=== PATIENT | male | born 1985 | race Caucasian/White ===

== ENCOUNTER 2016-10-26 18:05 | Emergency (ER) | payer SELFPAY ==
[~2016-10-26] VITALS: Ht 175.3 cm; Wt 68.0 kg
[~2016-10-26 18:05] MED LIST: DICL50TA3 PO; ROBA750T PO
[2016-10-26 18:07] VITALS: BP 127/66; PULSE 108; RESP 17; TEMP 98.2; O2SAT 98
--- NOTE | 2016-10-26 18:41 | PD ---
HPI Chief Complaint: Skin Problem Time Seen by Provider: 18:39 Travel History International Travel<30 days: No Contact w/Intl Traveler<30days: No Traveled to known affect area: No History of Present Illness HPI 31-year-old male presents to the emergency department for evaluation of abscess to his right upper arm. He states that approximately 4-5 days ago, he scratched his right upper arm against a chi nail in the infection started after. The patient does have history of IVDU. He states the last time he used was 6 months ago and adamantly denies currently using IV drugs. Patient denies any fevers or chills. He states he tried to pop it himself without success. Patient reports no chronic medical problems and taking no prescribed medications. Denies any chest injuries breath. No abdominal pain. No nausea, vomiting, diarrhea. He denies any allergies to medications. PFSH Past Medical History Medical History: Denies Significant Hx Diminished Hearing: No Tetanus Vaccination: Unknown Past Surgical History Surgical History: No Previous Surgery Social History Alcohol Use: No Tobacco Use: Yes Substance Use: No Allergies-Medications (Allergen,Severity, Reaction): Coded Allergies: No Known Allergies (Unverified , 10/26/16) Reported Meds & Prescriptions Reported Meds & Active Scripts Active Review of Systems Except as stated in HPI: all other systems reviewed are Neg Physical Exam Narrative GENERAL: Well-nourished, well-developed male patient, ambulatory. Afebrile SKIN: Focused skin assessment warm/dry. Patient has 10 cm x 10 cm fluctuant abscess with mild erythema to the right upper arm. HEAD: Normocephalic. Atraumatic. EYES: No scleral icterus. No injection or drainage. NECK: Supple, trachea midline. No JVD or lymphadenopathy. CARDIOVASCULAR: Regular rate and rhythm without murmurs, gallops, or rubs. Right radial pulse is 2+. RESPIRATORY: Breath sounds equal bilaterally. No accessory muscle use. Lungs sounds are clear to auscultation. GASTROINTESTINAL: Abdomen soft, non-tender, nondistended. MUSCULOSKELETAL: No cyanosis, or edema. Patient has full flexion of the right elbow, but limited extension due to pain. BACK: Nontender without obvious deformity. No CVA tenderness. Data Data Last Documented VS Vital Signs Date Time Temp Pulse Resp B/P Pulse Ox O2 Delivery O2 Flow Rate FiO2 10/26/16 19:19 98.2 83 19 111/61 100 Orders Complete Blood Count With Diff (10/26/16 18:37) Basic Metabolic Panel (Bmp) (10/26/16 18:37) Iv Access Insert/Monitor (10/26/16 18:37) Wound Culture And Gram Stain (10/26/16 18:37) Tetanus/Diphtheria Tox Adult (Tetanus/Di (10/26/16 18:45) Lidocai-Epi 1%-1:100,000 Inj (Xylocaine- (10/26/16 18:45) Clindamycin (Cleocin) (10/26/16 20:00) Labs Laboratory Tests Test 10/26/16 18:40 White Blood Count 15.7 TH/MM3 Red Blood Count 3.95 MIL/MM3 Hemoglobin 11.8 GM/DL Hematocrit 35.1 % Mean Corpuscular Volume 88.9 FL Mean Corpuscular Hemoglobin 29.9 PG Mean Corpuscular Hemoglobin 33.6 % Concent Red Cell Distribution Width 12.7 % Platelet Count 380 TH/MM3 Mean Platelet Volume 8.2 FL Neutrophils (%) (Auto) 74.8 % Lymphocytes (%) (Auto) 14.8 % Monocytes (%) (Auto) 9.0 % Eosinophils (%) (Auto) 0.9 % Basophils (%) (Auto) 0.5 % Neutrophils # (Auto) 11.7 TH/MM3 Lymphocytes # (Auto) 2.3 TH/MM3 Monocytes # (Auto) 1.4 TH/MM3 Eosinophils # (Auto) 0.1 TH/MM3 Basophils # (Auto) 0.1 TH/MM3 CBC Comment DIFF FINAL Differential Comment Sodium Level 135 MEQ/L Potassium Level 5.2 MEQ/L Chloride Level 104 MEQ/L Carbon Dioxide Level 22.8 MEQ/L Anion Gap 8 MEQ/L Blood Urea Nitrogen 12 MG/DL Creatinine 0.81 MG/DL Estimat Glomerular Filtration 111 ML/MIN Rate Random Glucose 83 MG/DL Calcium Level 8.4 MG/DL [facility] Medical Decision Making Medical Screen Exam Complete: Yes Emergency Medical Condition: Yes Medical Record Reviewed: Yes Differential Diagnosis Abscess versus cellulitis versus sepsis Narrative Course 31-year-old male presents to the emergency department for evaluation of abscess to his right arm that he has had for approximately 4-5 days. Patient adamantly denies IVDU. CBC, BMP are ordered and pending. CBC shows WBC of 15.7. BMP shows potassium of 5.2, however moderate hemolysis was noted. Patient is given clindamycin 300 mg by mouth in the emergency department. Tetanus immunization is updated. Patient will be discharged with a prescription for Bactrim and Keflex. He is instructed to return in 2 days for packing removal and recheck. He is return sooner for any acute worsening of symptoms. He verbalizes agreement and understanding. Procedures Procedure Narrative INCISION AND DRAINAGE OF ABSCESS: The area was prepped and was sterilely draped. A subcutaneous wheal of 1% Xylocaine with epinephrine with a total number 5 mL was used to anesthetize the area. The area was properly anesthetized. A number 11 scalpel was used to make a 1 -cm incision across the area of the abscess. Cultures were obtained. The abscess was drained an irrigated with normal saline. Quarter inch iodoform packing was placed in the wound. Sterile dressing applied. Patient advised to have packing removed in two days. Diagnosis Primary Impression: Abscess of arm, right Referrals: Primary Care Physician call for appointment Patient Instructions: Abscess (ED), Abscess Incision and Drainage (ED), General Instructions Departure Forms: Tests/Procedures, Work Release Enter return to work date: Oct 28, 2016 Additional Instructions: Take antibiotics as directed until gone. Bactrim is free at [facility]. Keflex is $4 at [facility]. Clean twice daily with soap and water and apply over the counter antibiotic ointment. Packing is to be removed in 2 days. Please return to the emergency department for packing removal and recheck of abscess in 2 days. Follow up with a primary care physician. Return sooner for any acute, worsening of symptoms. Med/Other Pt SpecificInfo: Prescription(s) given Scripts Ibuprofen 800 Mg [id number] Mg PO TID PRN (PAIN SCALE 1 TO 10) #21 TAB Ref 0 Prov:Anny Guy 10/26/16 Cephalexin (Keflex)500 Mg [id number] Mg PO Q6H 10 Days Ref 0 Prov:Anny Guy 10/26/16 Sulfamethoxazole-Trimethoprim (Bactrim DS)800-160 Mg Tab1 Tab PO BID #20 TAB Ref 0 Prov:Anny Guy 10/26/16 Disposition: 01 DISCHARGE HOME Condition: Stable Anny Guy Oct 26, 2016 18:41
[2016-10-26] MEDS ORDERED: TETANUS/DIPHTHERIA TOXOID ADULT 0.5 ML VIAL IM ONE (18:45)
[2016-10-26] MEDS ORDERED: LIDOCAINE 1%/EPINEPHrine 1:100,000 SOLN 20 ML VIAL INFIL ONE (18:45)
[2016-10-26 19:19] VITALS: BP 111/61; PULSE 83; RESP 19; TEMP 98.2; O2SAT 100
[2016-10-26 19:19] LABS: AUTOMATED NEUTROPHIL # 11.7 TH/MM3 (1.8-7.7); BASOPHIL # 0.1 TH/MM3 (0-0.2); BASOPHIL % 0.5 % (0.0-2.0); EOSINOPHIL # 0.1 TH/MM3 (0-0.4); EOSINOPHIL % 0.9 % (0.0-4.0); HEMATOCRIT 35.1 % (39.0-51.0); HEMO FLAGS DIFF FINAL; LYMPH % 14.8 % (9.0-44.0); LYMPHOCYTE # 2.3 TH/MM3 (1.0-4.8); MEAN CELL VOLUME 88.9 FL (80.0-100.0); MEAN CORPUSCULAR HEMOGLOBIN 29.9 PG (27.0-34.0); MEAN CORPUSCULAR HGB CONC 33.6 % (32.0-36.0); NEUT % 74.8 % (16.0-70.0); PLATELET COUNT 380 TH/MM3 (150-450); RED BLOOD COUNT 3.95 MIL/MM3 (4.50-5.90); RED CELL DISTRIBUTION WIDTH 12.7 % (11.6-17.2); WHITE BLOOD COUNT 15.7 TH/MM3 (4.0-11.0)
[2016-10-26 19:44] LABS: BICARBONATE 22.8 MEQ/L (21.0-32.0); POTASSIUM 5.2 MEQ/L (3.5-5.1)
[2016-10-26] MEDS ORDERED: BACT800T5 PO (19:58)
[2016-10-26] MEDS ORDERED: CEPH-460 PO (19:58)
[2016-10-26] MEDS ORDERED: IBUP800T23 PO (19:58)
[2016-10-26] MEDS ORDERED: CLINDAMYCIN 150 MG CAP PO ONE (20:00)
[2016-10-26 20:09] VITALS: BP 115/64; TEMP 98.2
== END 2016-10-26 20:11 | disposition home or self-care (01) ==
LOC: NEPE 18:05
DX: L02.413 Cutaneous abscess of right upper limb (principal); B95.61 Methicillin susceptible Staphylococcus aureus infection as the cause of diseases classified elsewhere; B96.3 Hemophilus influenzae [H. influenzae] as the cause of diseases classified elsewhere; Z23 Encounter for immunization
CPT/HCPCS: 10061; 80048; 85025; 86403; 87070; 87077; 87185; 87186; 87205; 90471; 90714

== ENCOUNTER 2017-06-09 19:55 | Emergency (ER) | payer MEDICAID ==
[~2017-06-09 19:55] MED LIST changes: +BACT800T5 PO; +CEPH-460 PO; -DICL50TA3 PO; +IBUP1TAB7 PO; -ROBA750T PO
[2017-06-09 19:58] VITALS: BP 178/101; PULSE 92; RESP 16; TEMP 97.8; O2SAT 99
--- NOTE | 2017-06-09 21:55 | RADRPT ---
EXAM DATE/TIME: 06/09/2017 20:39 [facility] COMPARISON: No previous studies available for comparison. INDICATIONS : Trauma, fell off roof. RADIATION DOSE: 32.93 CTDIvol (mGy) MEDICAL HISTORY : None SURGICAL HISTORY : None. ENCOUNTER: Initial ACUITY: 1 day PAIN SCALE: 8/10 LOCATION: cranial TECHNIQUE: Multiple contiguous axial images were obtained of the head. Using automated exposure control and adj ustment of the mA and/or kV according to patient size, radiation dose was kept as low as reasonably a chievable to obtain optimal diagnostic quality images. DICOM format image data is available electro nically for review and comparison. FINDINGS: CEREBRUM: The ventricles are normal for age. No evidence of midline shift, mass lesion, hemorrhage or acute in farction. No extra-axial fluid collections are seen. POSTERIOR FOSSA: The cerebellum and brainstem are intact. The 4th ventricle is midline. The cerebellopontine angle i s unremarkable. EXTRACRANIAL: The visualized portion of the orbits is intact. SKULL: The calvaria is intact. No evidence of skull fracture. CONCLUSION: Normal examination. Manny Roth MD on June 09, 2017 at 21:53 Board Certified Radiologist. This report was verified electronically.
--- NOTE | 2017-06-09 21:57 | RADRPT ---
EXAM DATE/TIME: 06/09/2017 20:39 [facility] COMPARISON: No previous studies available for comparison. INDICATIONS : Trauma, fell off roof. RADIATION DOSE: 19.24 CTDIvol (mGy) MEDICAL HISTORY : None SURGICAL HISTORY : None. ENCOUNTER: Initial ACUITY: 1 day PAIN SCALE: 0/10 LOCATION: neck TECHNIQUE: Volumetric scanning of the cervical spine was performed. Multiplanar reconstructions in the sagittal, coronal and oblique axial planes were performed. Using automated exposure control and adjustment o f the mA and/or kV according to patient size, radiation dose was kept as low as reasonably achievable to obtain optimal diagnostic quality images. DICOM format image data is available electronically f or review and comparison. FINDINGS: VERTEBRAE: Normal vertebral body height. ALIGNMENT: No evidence of subluxation. C2-C3: The bony spinal canal is normal in size. No evidence of disc bulge or herniation. The neural forami na are bilaterally patent. C3-C4: The bony spinal canal is normal in size. No evidence of disc bulge or herniation. The neural forami na are bilaterally patent. C4-C5: The bony spinal canal is normal in size. No evidence of disc bulge or herniation. The neural forami na are bilaterally patent. C5-C6: The bony spinal canal is normal in size. No evidence of disc bulge or herniation. The neural forami na are bilaterally patent. C6-C7: The bony spinal canal is normal in size. No evidence of disc bulge or herniation. The neural forami na are bilaterally patent. C7-T1: The bony spinal canal is normal in size. No evidence of disc bulge or herniation. The neural forami na are bilaterally patent. CONCLUSION: No acute bony abnormality is seen. Manny Roth MD on June 09, 2017 at 21:54 Board Certified Radiologist. This report was verified electronically.
[2017-06-09] MEDS ORDERED: NAPR500 PO (22:04)
[2017-06-09] MEDS ORDERED: CYCL10TA PO (22:04)
--- NOTE | 2017-06-09 22:11 | PD ---
HPI Chief Complaint: Fall Time Seen by Provider: 21:50 Travel History International Travel<30 days: No Contact w/Intl Traveler<30days: No Traveled to known affect area: No History of Present Illness HPI Patient comes in for evaluation of a headache status post fall that occurred around 3 PM today. Patient states he accidentally stepped off a roof and after landing he fell forward hitting his head and now having intermittent headaches on the top of his head where he hit. Patient denies any loss of consciousness, chest pain, shortness of breath, abdominal pain, fevers, nausea, vomiting, back pain, leg pain, ankle pain, foot pain, calcaneus pain, loss or change in bowel or bladder, numbness or tingling anywhere, being on any blood thinners, radiation of pain, or pain anywhere else. Patient states initially he drove home was not going to be checked out and took some ibuprofen. Patient was encouraged by his mother to come in for evaluation. Patient also complaining of neck stiffness. Denies anything making this better. Has got slightly worse since having c-collar in place. Denies any radiation of the pain. PFSH Past Medical History Medical History: Denies Significant Hx Diminished Hearing: No Influenza Vaccination: No Past Surgical History Surgical History: No Previous Surgery Social History Alcohol Use: No Tobacco Use: Yes (1 ppd) Substance Use: No Allergies-Medications (Allergen,Severity, Reaction): Coded Allergies: No Known Allergies (Unverified , 10/26/16) Reported Meds & Prescriptions Reported Meds & Active Scripts Active Flexeril (Cyclobenzaprine HCl) 10 Mg Tab 10 Mg PO Q12HR PRN Naprosyn (Naproxen) 500 Mg Tab 500 Mg PO Q12HR PRN Ibuprofen 800 Mg Tab 800 Mg PO TID PRN Keflex (Cephalexin) 500 Mg Cap 500 Mg PO Q6H 10 Days Bactrim DS (Sulfamethoxazole-Trimethoprim) 800-160 Mg Tab 1 Tab PO BID Review of Systems Except as stated in HPI: all other systems reviewed are Neg Physical Exam Narrative GENERAL: Well-developed, well nourished, in no acute distress, and non-ill appearing. SKIN: Warm and dry. No obvious lacerations, abrasions, or traumatic injuries noted. HEAD: Atraumatic. Normocephalic. No bony point tenderness or crepitus noted throughout the scalp and facial bones. EYES: PERRLA. EOMI. No scleral icterus. No injection or drainage. No hyphema. Corneas are clear. No foreign body noted. ENT: No nasal bleeding or discharge. Mucous membranes pink and moist. NECK: Trachea midline. C-collar in place. CARDIOVASCULAR: Regular rate and rhythm. No murmur appreciated. RESPIRATORY: No accessory muscle use. No respiratory distress. Clear to auscultation. Breath sounds equal bilaterally. No ecchymosis noted. GASTROINTESTINAL: Abdomen soft, non-tender, nondistended. Hepatic and splenic margins not palpable. Normal bowel sounds 4. No pulsatile mass. No ecchymosis noted. MUSCULOSKELETAL: No obvious deformities. No clubbing. No cyanosis. No edema. Full range of motion. Pelvic stable. No midline tenderness or crepitus throughout spinal column. Shoulder:FROM equal BL with passive flexion, extension , Abduction, Adduction, internal/external rotation, and pronation/supination. Sensation equal BL deltoid muscles. Pulses equal BL distal to injury. Capillary refill less than 2 seconds distal to injury and equal BL. FROM distal to injury and equal BL. Strength distal to injury equal BL. NV intact distal to injury equal BL. Flexion and extension of thumb equal BL. Equal strength and movement with abduction/adductions of BL fingers. Steel Grinder strength equal BL. Hip: FROM and equal BL with passive flexion, extension, Abduction, Adduction, and internal/external rotation. Pulses equal BL distal to injury. Capillary refill less than 2 seconds distal to injury and equal BL. FROM distal to injury and equal BL. Strength distal to injury equal BL. NV intact distal to injury and equal BL. Plantar flexion and dorsal flexion equal BL. Dorsal pulses equal BL. Sensation equal BL 1st web space. Negative squeeze test bilateral calcaneus. NEUROLOGICAL: Awake and alert. No obvious cranial nerve deficits. Motor grossly within normal limits. Normal speech. Normal gait. PSYCHIATRIC: Appropriate mood and affect; insight and judgment normal. Data Data Last Documented VS Vital Signs Date Time Temp Pulse Resp B/P (MAP) Pulse Ox O2 Delivery O2 Flow Rate FiO2 06/09/17 22:29 06/09/17 19:58 97.8 92 16 99 Room Air Orders Orders Ct Brain W/O Iv Contrast(Rout) (06/09/17 ) Ct Cerv Spine W/O Contrast (06/09/17 ) Ed Discharge Order (06/09/17 22:13) [facility] Medical Decision Making Medical Screen Exam Complete: Yes Emergency Medical Condition: Yes Interpretation(s) Last Impressions Head CT 06/09/17 0000 Signed Impressions: Service Date/Time: Friday, June 09, 2017 20:39 - CONCLUSION: Normal examination. Manny Roth MD Cervical Spine CT 06/09/17 0000 Signed Impressions: Service Date/Time: Friday, June 09, 2017 20:39 - CONCLUSION: No acute bony abnormality is seen. Manny Roth MD Differential Diagnosis Fracture, strain, contusion, closed head injury, intracranial hemorrhage, other Narrative Course Patient presents with closed head injury neck strain. There was no evidence of cranial or intracranial injury noted on CT of the head and no evidence of fracture or injury to cervical spine on C-spine CT. The patient has been behaving normally and no notable altered mental status. Santosh score of 15. The neurologic exam is normal. The patient is awake and aware and motor sensory exams are normal. There is no clinical evidence to support intracranial injury or bleed. Patient in no obvious distress upon re-evaluation. All pertinent Radiology result(s) discussed with patient. Patient was asked if they wanted to speak to my attending, which the patient did not wish to do at this time. Any questions/ concerns in reference to patient diagnosis/condition discussed and clarified prior to patient's discharge. Reinforced sheer importance of close follow up with patient's primary physician or primary care clinic. Instructed patient to return to ED immediately, if symptoms return/worsen. Patient showed understanding of above instructions. Further instructions and recommendations were detailed in discharge paperwork. Patient ambulated without difficulty out of ED at discharge. Diagnosis Primary Impression: Closed head injury Qualified Codes: S09.90XA - Unspecified injury of head, initial encounter Additional Impression: Cervical strain Qualified Codes: S16.1XXA - Strain of muscle, fascia and tendon at neck level , initial encounter Referrals: [facility] Patient Instructions: Cervical Neck Strain Exercises (GEN), Cervical Strain (DC ), General Instructions, Head Injury (ED) Additional Instructions: Follow-up with your primary care provider this week for re-evaluation. Take all medication as prescribed. Return to the emergency department if symptoms get worse. Med/Other Pt SpecificInfo: Prescription(s) given Scripts Cyclobenzaprine (Flexeril) 10 Mg Tab 10 MG PO Q12HR Y for MUSCLE PAIN, #12 TAB 0 Refills Prov: Nelson Ramsay MD 06/09/17 Naproxen (Naprosyn) 500 Mg Tab 500 MG PO Q12HR Y for PAIN SCALE 1 TO 10, #14 TAB 0 Refills Prov: Nelson Ramsay MD 06/09/17 Disposition: 01 DISCHARGE HOME Condition: Stable Geoffrey Lopez Jun 09, 2017 22:11
== END 2017-06-09 22:39 | disposition home or self-care (01) ==
LOC: NEPK 19:55
DX: S09.90XA Unspecified injury of head, initial encounter (principal); S16.1XXA Strain of muscle, fascia and tendon at neck level, initial encounter; F17.200 Nicotine dependence, unspecified, uncomplicated; Z79.899 Other long term (current) drug therapy; W17.89XA Other fall from one level to another, initial encounter
CPT/HCPCS: 70450; 72125